=== PATIENT | female | born 2000 | race Caucasian/White ===

== ENCOUNTER 2022-10-23 07:30 | Inpatient (IN) | payer OTHER ==
[2022-10-23] MEDS ORDERED: DINOPROSTONE 10 MG VAGINAL SUPPOSITORY VG STA ×2 (09:18→21:45)
[2022-10-23 09:49] VITALS: BMI 28.5
[2022-10-23] MEDS: ELECTROLYTE-148 SOLN 1,000 ML IV SCH (12:00)
[2022-10-23] MEDS ORDERED: BUTORPHANOL TARTRATE 1 MG/ML VIAL IVPB ONE (22:34)
[2022-10-24] MEDS ORDERED: CITRIC ACID/SODIUM CITRATE 30 ML UNIT-DOSE CUP PO ONE (03:00)
[2022-10-24] MEDS ORDERED: ELECTROLYTE-148 SOLN 500 ML IV ONE (03:00)
[2022-10-24] MEDS ORDERED: morphine SULFATE (PF) 1 MG/2 ML SYRINGE ONE (03:02)
[2022-10-24] MEDS ORDERED: ONDANSETRON 4 MG/2 ML VIAL IVPUSH PRN (03:07)
[2022-10-24] MEDS: OXYTOCIN 20 UNITS in 0.9% NS 20 UNIT/1,000 ML INFUS.BAG IV SCH ×2 (03:45→07:00)
[2022-10-24 04:34] LABS: CORD HCO3 25.2 mmHg (20-29); CORD PCO2 47.3 mmHg (30-78); CORD pH 7.344 (7.14-7.44); VENOUS PCO2 55.9 mmHg (38-52); VENOUS PH 7.295 (7.310-7.410)
[2022-10-24] MEDS ORDERED: IBUPROFEN 800 MG/8 ML IJ IVPB PRN (04:43)
[2022-10-24] MEDS ORDERED: ACETAMINOPHEN 325 MG TABLET (FP) PO PRN (04:43)
[2022-10-24] MEDS ORDERED: oxyCODONE HCL 5 MG TABLET PO PRN (16:43)
[2022-10-24] MEDS: IBUPROFEN 600 MG TABLET (FP) PO PRN (20:23)
[2022-10-24] MEDS: SIMETHICONE 80 MG TAB.CHEW (FP) PO PRN (20:24)
[2022-10-24] MEDS: ELECTROLYTE-148 SOLN 1,000 ML IV SCH (21:45)
[2022-10-25] MEDS: IBUPROFEN 600 MG TABLET (FP) PO PRN ×2 (01:22→18:33)
[2022-10-25] MEDS: SIMETHICONE 80 MG TAB.CHEW (FP) PO PRN ×2 (01:23→18:33)
[2022-10-25] MEDS ORDERED: BISACODYL 10 MG SUPP.RECT RC PRN (04:43)
[2022-10-25 07:44] LABS: BASO % 0.3 % (0-2.0); EOS % 0.8 % (0-4.5); HEMATOCRIT 32.4 % (32.4-45.2); HEMOGLOBIN 11.3 GM/dL (10.7-15.3); MCH 32.7 pg (25.7-33.7); MCHC 34.8 g/dl (32.0-36.0); MEAN PLT VOLUME 9.2 fl (7.5-11.1); NEUT % 60.9 % (42.8-82.8); PLATELET COUNT 228 10^3/uL (134-434); RBC 3.45 M/mm3 (3.60-5.2); RDW 13.4 % (11.6-15.6)
[2022-10-25] MEDS: ELECTROLYTE-148 SOLN 1,000 ML IV SCH ×3 (23:10→23:11)
[2022-10-25] MEDS: OXYTOCIN 20 UNITS in 0.9% NS 20 UNIT/1,000 ML INFUS.BAG IV SCH (23:11)
[2022-10-26] MEDS: SIMETHICONE 80 MG TAB.CHEW (FP) PO PRN ×2 (04:18→22:21)
[2022-10-26] MEDS: IBUPROFEN 600 MG TABLET (FP) PO PRN ×3 (04:18→22:21)
[2022-10-26] MEDS: ACETAMINOPHEN 325 MG TABLET (FP) PO PRN (09:40)
[2022-10-27 08:33] LABS: BASO % 0.2 % (0-2.0); HEMATOCRIT 31.2 % (32.4-45.2); HEMOGLOBIN 10.7 GM/dL (10.7-15.3); LYMPH % 34.9 % (8-40); MCH 32.5 pg (25.7-33.7); MCHC 34.2 g/dl (32.0-36.0); MEAN CELL VOLUME 95.2 fl (80-96); MEAN PLT VOLUME 9.3 fl (7.5-11.1); MONO % 9.4 % (3.8-10.2); NEUT % 53.5 % (42.8-82.8); PLATELET COUNT 268 10^3/uL (134-434); RBC 3.28 M/mm3 (3.60-5.2); RDW 13.5 % (11.6-15.6); WHITE BLOOD COUNT 8.1 K/mm3 (4.0-10.0)
[2022-10-27] MEDS: IBUPROFEN 600 MG TABLET (FP) PO PRN (14:07)
[2022-10-27] MEDS: SIMETHICONE 80 MG TAB.CHEW (FP) PO PRN (14:07)
[2022-10-27] MEDS: ACETAMINOPHEN 325 MG TABLET (FP) PO PRN (23:40)
[2022-10-28 12:20] VITALS: BP 123/70; PULSE 84; RESP 17; TEMP 97.6
== END 2022-10-28 13:45 | disposition home or self-care (01) | DRG 540 ==
LOC: JLDR 07:30 → J3W 10-24 05:50
PROVIDERS: ADMIT Student in an Organized Health Care Education/Training Program; ATTEND Student in an Organized Health Care Education/Training Program
PROC: 3E0P7VZ Introduction of Hormone into Female Reproductive, Via Natural or Artificial Opening (ICD-10-PCS; 2022-10-23)
PROC: 10D00Z1 Extraction of Products of Conception, Low, Open Approach (ICD-10-PCS; principal; 2022-10-24)
PROC: 10907ZC Drainage of Amniotic Fluid, Therapeutic from Products of Conception, Via Natural or Artificial Opening (ICD-10-PCS; 2022-10-24)
DX: O61.0 Failed medical induction of labor (principal); O36.5930 Maternal care for other known or suspected poor fetal growth, third trimester, not applicable or unspecified; O76 Abnormality in fetal heart rate and rhythm complicating labor and delivery; Z3A.39 39 weeks gestation of pregnancy; Z37.0 Single live birth
CPT/HCPCS: 36415; 36600; 59025; 80048; 82803; 85025; 85610; 85730; 86780; 86850; 86900; 86901; 88307-TC; C9803-CS; U0003; U0005